=== PATIENT | male | born 1975 | race Hispanic/Latino ===

== ENCOUNTER 2024-09-12 14:05 | Emergency (ER) | payer OTHER ==
[~2024-09-12] VITALS: Ht 170.2 cm; Wt 90.3 kg
--- NOTE | 2024-09-12 14:12 | ERN ---
ED Note History of Present Illness Stated Complaint: CHEST PAIN Time Seen by MD: 14:06 Dictation: PATIENT IS A 49-YEAR-OLD MALE STATES HE IS RETIRED . HE STATES HIS COMPLAINT IS SUBSTERNAL CHEST PAIN THAT OCCASIONALLY RADIATES TO HIS THORACIC BACK, TO HIS RIGHT LATERAL NECK, RIGHT CHEST ONSET 4-5 DAYS PRIOR TO ARRIVAL. NO NAUSEA VOMITING. STATES HE WENT TO THE [facility] SEVERAL DAYS AGO WITH THE SAME COMPLAINT, THEY DID AN EKG TOLD HIM IT WAS GASTRITIS AND PUT HIM ON GASTRIC MEDS. HE STATES IT HAS NOT GOTTEN ANY BETTER DESPITE THEIR TREATMENT. HE WANTS US TO RULE OUT CARDIAC DISEASE. DENIES ANY HISTORY OF CAD Past Medical History RN Note Reviewed/Agreed w/PFSH: Yes Review of System Dictation CONSTITUTIONAL: NEGATIVE EXCEPT FOR HPI HEAD/FACE: NEGATIVE EXCEPT FOR HPI EENT: NEGATIVE EXCEPT FOR HPI RESPIRATORY: NEGATIVE EXCEPT FOR HPI CHEST PAIN THAT RADIATES GASTROINTESTINAL/ABDOMINAL: NEGATIVE EXCEPT FOR HPI GENITOURINARY: NEGATIVE EXCEPT FOR HPI MUSCULOSKELETAL: NEGATIVE EXCEPT FOR HPI INTEGUMENTARY: NEGATIVE EXCEPT FOR HPI NEUROLOGICAL/PSYCH: NEGATIVE EXCEPT FOR HPI HEMATOLOGIC/LYMPHATIC: NEGATIVE EXCEPT FOR HPI ALL SYSTEMS NEGATIVE, EXCEPT NOTED ABOVE. 13 POINT REVIEW OF SYSTEMS ASSESSED AND ALL NEGATIVE EXCEPT FOR ABOVE. Initial Vital Sign VS Vital Signs Date Time Temp Pulse Resp B/P (MAP) Pulse Ox O2 Delivery O2 Flow Rate FiO2 09/12/24 14:12 98.1 101 20 174/97 98 Room Air 0 09/12/24 14:55 21 Physical Exam Dictation VITAL SIGNS REVIEWED GENERAL APPEARANCE: ALERT, ORIENTED X 3, NO ACUTE DISTRESS, WELL DEVELOPED, NOURISHED. ANXIOUS HEAD AND FACE: NON-TRAUMATIC. EYES: PERRL, PINK CONJUNCTIVAS, EYELID NO TRAUMA, ANTERIOR CHAMBER WITH ARCUS SENILIS. EARS: PINNAS INTACT AND NO SIGNS OF TRAUMA OR ERYTHEMA EAR CANALS CLEAR AND NO DISCHARGE TM NO ERYTHEMA NOSE: NO DISCHARGE, NO BLEEDING. OROPHARYNX: MOUTH NORMAL, TONGUE PINK, PHARYNX CLEAR,NO ERYTHEMA, TONSILS NO EXUDATES, NO ABSCESSES NOTED, MUCOUS MEMBRANE MOIST NECK: SUPPLE, NON-TENDER, NO THYROMEGALY, NO MASSES, NO JVD, NO BRUITS BREAST:DEFERRED CHEST:NO TENDERNESS, NO CREPITUS, NO PARADOXICAL MOVEMENT, NO RETRACTIONS LUNGS:CLEAR, WELL-VENTILATED, SYMMETRIC, NO RALES, NO WHEEZING, NO RHONCHI, NO STRIDOR, GOOD BREATH SOUNDS BILATERALLY HEART: REGULAR RATE, REGULAR RHYTHM, NO MURMUR, NO GALLOPS VASCULAR: NO PERIPHERAL EDEMA, ABDOMEN: SOFT, POSITIVE BOWEL SOUNDS, NONDISTENDED, NO GUARDING, NONTENDER, NO REBOUND, NO MASSES NO HEPATOMEGALY, NO SPLENOMEGALY, NO STACK'S SIGN, NO HERNIAS. RECTAL: DEFERRED GENITAL: DEFERRED NEUROLOGICAL: NORMAL SPEECH, MOTOR FUNCTION INTACT, SENSORY FUNCTION INTACT MUSCULOSKELETAL: NECK NONTENDER, FULL RANGE OF MOTION, BACK NONTENDER, FULL RANGE OF MOTION, EXTREMITIES: NONTENDER, FULL RANGE OF MOTION SKIN: COLOR PINK, DRY, NO TURGOR, NO RASH, NO LACERATIONS, NO ABRASIONS, NO CONTUSIONS. LYMPHATIC: DEFERRED Results (Laboratory/Radiology) Laboratory/Radiology Laboratory Tests Test 09/12/24 14:21 White Blood Count 7.6 K/uL (4.8-10.8) Red Blood Count 5.88 MIL/uL (4.50-6.20) Hemoglobin 17.6 g/dL (14.0-18.0) Hematocrit 49.4 % (42-54) Mean Corpuscular Volume 84.0 fL (79-99) Mean Corpuscular Hemoglobin 29.9 pg (27.0-33.0) Mean Corpuscular Hemoglobin Concent 35.6 g/dL (32.0-36.0) Red Cell Distribution Width 12.2 % (11.0-15.5) Platelet Count 223 K/uL (130-400) Mean Platelet Volume 9.7 fL (7.5-10.5) Immature Granulocyte % (Auto) 1.1 % (0-1) H Neutrophils (%) (Auto) 63.0 % (40.0-77.0) Lymphocytes (%) (Auto) 26.1 % (21.0-51.0) Monocytes (%) (Auto) 7.8 % (3.0-13.0) Eosinophils (%) (Auto) 1.3 % (0.0-8.0) Basophils (%) (Auto) 0.7 % (0.0-5.0) Neutrophils # (Auto) 4.8 K/uL (1.8-7.7) Lymphocytes # (Auto) 2.0 K/uL (1.0-4.8) Monocytes # (Auto) 0.6 K/uL (0.1-1.0) Eosinophils # (Auto) 0.10 K/uL (0.00-0.70) Basophils # (Auto) 0.05 K/uL (0.00-0.20) Absolute Immature Granulocyte (auto 0.08 K/uL (0-1) Nucleated Red Blood Cells 0.0 % (0.0-0.19) Sodium Level 140 mmol/L (136-145) Potassium Level 4.0 mmol/L (3.5-5.1) Chloride Level 105 mmol/L (101-111) Carbon Dioxide Level 27 mmol/L (21-32) Blood Urea Nitrogen 15 mg/dL (7-18) Creatinine 0.8 mg/dL (0.5-1.3) Glomerular Filtration Rate Calc 109 mL/min (>90) Random Glucose 188 mg/dL (70-105) H Total Calcium 9.6 mg/dL (8.5-10.1) Magnesium Level 1.80 mg/dL (1.80-2.40) Troponin I High Sensitivity 5 ng/L (4-75) PROCEDURE: CXR1VW - CHEST 1VW CHEST 1VW HISTORY: Chest pain COMPARISON: None FINDINGS: A frontal projection of the chest was obtained. No acute pulmonary infiltrates is seen. The heart is normal in size. Degenerative changes are seen. No evidence of aortic calcification is seen. IMPRESSION: 1. No acute pulmonary infiltrate is seen. Labs Reviewed?: Yes EKG Comment: EKG SINUS TACHYCARDIA/HEART RATE 107/AXIS NORMAL/CA INTERVAL 197 MILLISECOND ED Course ED Course Orders Procedure Category Date Status Time Cbc With Differential LAB 09/12/24 Complete 14:10 Chest 1vw RAD 09/12/24 Resulted 14:10 12 Lead Ekg Tracing- EKG 09/12/24 Complete Technical 14:10 Magnesium LAB 09/12/24 Complete 14:10 Troponin I High LAB 09/12/24 Complete Sensitivity 14:10 Aspirin 325mg Tab PHA 09/12/24 Logged (Aspirin 325mg Tab) 14:30 Basic Metabolic Panel LAB 09/12/24 Complete 14:10 Current Medications Medications (Trade) Dose Ordered Sig/Pa Route PRN Reason Start Time Stop Time Status Last Admin Dose Admin Aspirin (Aspirin 325mg Tab) 325 mg ONCE ONCE PO 09/12/24 14:30 09/12/24 14:31 UNV Vital Signs Date Time Temp Pulse Resp B/P (MAP) Pulse Ox O2 Delivery O2 Flow Rate FiO2 09/12/24 14:55 87 18 152/97 98 Room Air* 0 21 09/12/24 14:12 98.1 101 20 174/97 98 Room Air 0 /PATIENT STATES FOOD IS WORSE. TOLD TO CONTINUE HIS MEDICATIONS AT HOME WHICH IS FAMOTIDINE ALSO TOLD TO CONTROL HIS BLOOD SUGAR AND TO FOLLOW UP WITH STOCK MOVER SATURDAY. IN ADDITION HE STATES STATES HE DRINKS ALCOHOL, WAS ADVISED TO STOP ALCOHOL, NO SPICY FOODS WATER FOR FLUIDS ONLY AND NO CITRUS FRUIT JUICE UNTIL CLEARED BY STOCK MOVER. HEART Score Response (Comments) Value EKG: Normal 0 Age: 45-65yrs (+1) 1 Risk Factors: 1-2 risk factors (+1) 1 Initial Troponin: Normal limit (0) 0 Total 2 Medical Decision Making MDM MDM: DIFFERENTIAL DIAGNOSIS: ACS/AMI/GASTRITIS/GERD/ELECTROLYTE IMBALANCE/DEHYDRATION/ANXIETY RATIONALE: TESTS CONSIDERED AND ORDERED SECONDARY TO SHARED DECISION MAKING INCLUDE: EKG/LABS PREVIOUS OUTSIDE RECORDS REVIEWED: OLD ER VISITS. RISK OF COMPLICATION AND/OR MORBIDITY OR MORTALITY OF PATIENT MANAGEMENT: NONE MEDICATIONS-PER MEDICATION RECONCILIATION NEED FOR HOSPITALIZATION: PATIENT DOES NOT MEET CRITERIA FOR HOSPITALIZATION. NO NEED FOR EMERGENCY MAJOR/MINOR SURGERY: NO THERE ARE NO SOCIAL CONCERNS WITH THIS PATIENT. PRESCRIPTION DRUG MANAGEMENT CARAFATE/CONTINUE FAMOTIDINE 40 P.O. AT HOME, GI CONSULTATION SATURDAY PRESCRIPTIONS WILL INCLUDE SYMPTOMATIC CARE PATIENT'S PRIOR EXTERNAL MEDICAL RECORDS FROM OTHER ER VISITS WERE REVIEWED BY ME INDICATED. PRIOR TESTING AND RESULTS FROM PREVIOUS VISITS WERE REVIEWED. PRIOR TESTS WERE TAKEN INTO ACCOUNT WITH MEDICAL DECISION MAKING AND RESOURCE UTILIZATION, INDEPENDENT HISTORIAN/HISTORIANS WERE USED TO OBTAIN COMPLETE MEDICAL HISTORY. I INDEPENDENTLY INTERPRETED THE TEST THAT WERE PERFORMED, RESULTS WERE REVIEWED BY ME AND CONSIDERED FINDINGS ON RADIOLOGY IF ORDERED. MEDICAL MANAGEMENT AND EXAMINATION INTERPRETATION DISCUSSIONS WERE HAD BY ME WITH OTHER QUALIFIED HEALTHCARE PROFESSIONALS INDICATED FOR THE PATIENT'S CARE. DX & DISP Disposition: Discharge Departure Impression: Primary Impression: Atypical chest pain Additional Impressions: Acute gastritis, Diabetes mellitus with hyperglycemia Condition: Stable Scripts Sucralfate (Carafate) 1 Gram Tablet 1 GM PO ACHS, #40 TAB Prov: YEN DENNY TOWEL CABINET REPAIRER 09/12/24 Additional Instructions: FOLLOW-UP WITH PRIMARY CARE PROVIDER IN 1 TO 2 DAYS. TAKE MEDICATIONS DIRECTED HERE IN THE EMERGENCY ROOM. OKAY TO CONTINUE HOME MEDICATIONS UNLESS OTHERWISE DISCUSSED DURING YOUR VISIT IN THE EMERGENCY ROOM TODAY. RETURN TO YOUR NEAREST EMERGENCY ROOM IF SYMPTOMS WORSEN OR IF THERE IS NO IMPROVEMENT. CALL 911 IF YOU NEED IMMEDIATE ASSISTANCE. TAKE TYLENOL OR MOTRIN [id number] NEEDED AND IF NO CONTRAINDICATIONS ARE PRESENT. INCREASE ORAL HYDRATION. A WOUND CULTURE OR URINE CULTURE WAS ORDERED HERE IN THE EMERGENCY ROOM DEPARTMENT PLEASE FOLLOW-UP WITH PRIMARY CARE PROVIDER AND ADVISE THEM TO GET REPEAT PORTS FROM OUR FACILITY. IF YOU HAD ANY KERVIN WRAP/SPLINTS THAT WERE APPLIED HERE, PLEASE DO NOT REMOVE THEM UNTIL YOU SEE YOUR PRIMARY CARE OR SPECIALTY. CONTINUE PEPCID 40 MG FROM YOUR DOCTOR AT THE [facility]. START CARAFATE DIRECTED. DRINK WATER WITH YOUR MEALS, STOP ALCOHOL, TOBACCO, NO SPICY FOODS, NO CITRUS FRUIT JUICE NO COFFEE, NO ICE TEA UNTIL CLEARED BY STOCK MOVER, CALL FOR AN APPOINTMENT ON SATURDAY. Referrals: CARLTON KEY MD (PCP) LUCY AVITIA MD Time of Disposition: 15:11 I have reviewed the case, and I agree with, Diagnosis and Plan YEN DENNY NP September 12, 2024 14:12
--- NOTE | 2024-09-12 14:17 | EKG ---
[facility] Test Date: 2024-09-12 Test Time: 14:15:23 Pat Name: YOCASTA VAZQUEZ Department: ED Room: Gender: M Nurse Monitoring: [id number] : [id number] Requested By: YEN DENNY Order Number: [id number] Reading MD: Oneil Hernandez Measurements Intervals [place] Rate: 107 P: 39 [place]: 197 QRS: 22 QRSD: 102 T: 18 QT: 333 QTc: 445 Interpretive Statements Sinus tachycardia Borderline prolonged [place] interval No previous ECG available for comparison Electronically Signed On 09-14-2024 22:14:13 CDT by Oneil Hernandez Please click the below link to view image of tracing.
[2024-09-12] MEDS ORDERED: ASPIRIN 325MG TAB PO ONE (14:30)
[2024-09-12 14:31] LABS: BASOPHILS # (AUTO) 0.05 K/uL (0.00-0.20); BASOPHILS % (AUTO) 0.7 % (0.0-5.0); EOSINOPHILS % (AUTO) 1.3 % (0.0-8.0); HEMATOCRIT 49.4 % (42-54); IMMATURE GRANULOCYTE ABSOLUTE 0.08 K/uL (0-1); LYMPHOCYTES % (AUTO) 26.1 % (21.0-51.0); MEAN CORPUSCULAR HEMOGLOBIN 29.9 pg (27.0-33.0); MEAN CORPUSCULAR HGB CONC 35.6 g/dL (32.0-36.0); MONOCYTES # (AUTO) 0.6 K/uL (0.1-1.0); MONOCYTES % (AUTO) 7.8 % (3.0-13.0); NEUTROPHILS # (AUTO) 4.8 K/uL (1.8-7.7); PLATELET COUNT (AUTO) 223 K/uL (130-400); RED BLOOD CELL COUNT(AUTO) 5.88 MIL/uL (4.50-6.20); RED CELL DISTRIBUTION WIDTH 12.2 % (11.0-15.5); WHITE BLOOD COUNT (AUTO) 7.6 K/uL (4.8-10.8)
[2024-09-12 14:44] LABS: CREATININE 0.8 mg/dL (0.5-1.3); MAGNESIUM 1.8 mg/dL (1.80-2.40)
--- NOTE | 2024-09-12 14:47 | HMCIMG ---
CHEST 1VW HISTORY: Chest pain COMPARISON: None FINDINGS: A frontal projection of the chest was obtained. No acute pulmonary infiltrates is seen. The heart is normal in size. Degenerative changes are seen. No evidence of aortic calcification is seen. IMPRESSION: 1. No acute pulmonary infiltrate is seen.
[2024-09-12] MEDS ORDERED: SUCR1TAB28 PO (15:12)
[2024-09-12 15:40] VITALS: BP 154/91; PULSE 81; RESP 18; TEMP 98.1; O2SAT 97
== END 2024-09-12 15:51 | disposition home or self-care (01) ==
LOC: EDH 14:05
DX: R07.2 Precordial pain (principal); K29.00 Acute gastritis without bleeding; E11.65 Type 2 diabetes mellitus with hyperglycemia
CPT/HCPCS: 36415; 71045; 80048; 83735; 84484; 85025; 93005; 99285